=== PATIENT | female | born 1940 | race African-American/Black ===

== ENCOUNTER 2020-11-03 16:23 | Observation (INO) | payer OTHER ==
[2020-11-03 17:07] VITALS: BMI 28.8
[2020-11-03 19:32] LABS: CHLORIDE 106 mmol/L (98-107); SODIUM 141 mmol/L (136-145)
[2020-11-03 19:32] LABS: EOS % 2.6 % (0-4.5); HEMATOCRIT 39.9 % (32.4-45.2); LYMPH % 14.4 % (8-40); MCH 26.1 pg (25.7-33.7); MCHC 32.5 g/dl (32.0-36.0); MEAN CELL VOLUME 80.1 fl (80-96); MEAN PLT VOLUME 9.9 fl (7.5-11.1); MONO % 14.8 % (3.8-10.2); NEUT % 67.2 % (42.8-82.8); PLATELET COUNT 169 10^3/uL (134-434); RBC 4.97 M/mm3 (3.60-5.2); RDW 14.2 % (11.6-15.6); WHITE BLOOD COUNT 5.7 K/mm3 (4.0-10.0)
[2020-11-03 19:36] LABS: ALBUMIN 3.9 g/dl (3.4-5.0); ANION GAP 9 MMOL/L (8-16); BLOOD UREA NITROGEN 19.2 mg/dL (7-18); CO2 26 mmol/L (21-32); GLUCOSE,RANDOM 79 mg/dL (74-106); MAGNESIUM 2.2 mg/dL (1.8-2.4)
[2020-11-03 19:38] LABS: CREATININE 1.3 mg/dL (0.55-1.3); SGOT/AST 27 U/L (15-37); SGPT/ALT 19 U/L (13-61)
[2020-11-03 19:40] LABS: INR 1.03 (0.83-1.09); PROTHROMBIN TIME (PATIENT) 12.7 SEC (9.7-13.0)
[2020-11-03 19:40] LABS: BILIRUBIN,TOTAL 0.7 mg/dL (0.2-1)
[2020-11-03 19:41] LABS: ALK PHOS 141 U/L (45-117); TOT PROT 7.8 g/dl (6.4-8.2)
[2020-11-03 19:44] LABS: N-TERMINAL BNP 283.1 pg/ml (5-450)
[2020-11-03] MEDS ORDERED: CEFTRIAXONE 1 GM in DEXTROSE 5%-WATER - 100 ML IVPB ONE (20:04)
[2020-11-03] MEDS ORDERED: AZITHROMYCIN IVPB 500 MG in DEXTROSE 5%-WATER - 250 ML IVPB ONE (20:04)
[2020-11-03] MEDS ORDERED: CEFTRIAXONE 1 GM/50 ML BAG ONE (20:21)
[2020-11-03] MEDS ORDERED: AZITHROMYCIN IVPB 500 MG/250 ML BAG IVPB ONE (21:17)
[2020-11-04] MEDS ORDERED: ACETAMINOPHEN 325 MG TABLET (FP) PO PRN (02:24)
[2020-11-04 05:57] LABS: PH,URINE 6.5 (5.0-8.0); URINE APPEARANCE CLEAR; URINE BILIRUBIN NEGATIVE (NEGATIVE); URINE COLOR YELLOW; URINE GLUCOSE (UA) NEGATIVE (NEGATIVE); URINE KETONE NEGATIVE (NEGATIVE); URINE LEUK ESTERASE NEGATIVE (NEGATIVE); URINE NITRITE NEGATIVE (NEGATIVE); URINE PROTEIN NEGATIVE (NEGATIVE); URINE UROBILINOGEN 0.2 mg/dL (0.2-1.0)
[2020-11-04 06:51] LABS: BASO % 1.4 % (0-2.0); HEMATOCRIT 39.5 % (32.4-45.2); HEMOGLOBIN 12.8 GM/dL (10.7-15.3); LYMPH % 16.9 % (8-40); MCH 26.1 pg (25.7-33.7); MCHC 32.4 g/dl (32.0-36.0); MEAN CELL VOLUME 80.4 fl (80-96); MEAN PLT VOLUME 8.7 fl (7.5-11.1); MONO % 18.4 % (3.8-10.2); NEUT % 58.3 % (42.8-82.8); PLATELET COUNT 152 10^3/uL (134-434); RBC 4.91 M/mm3 (3.60-5.2); RDW 14.2 % (11.6-15.6); WHITE BLOOD COUNT 4.5 K/mm3 (4.0-10.0)
[2020-11-04 07:16] LABS: ALBUMIN 3.5 g/dl (3.4-5.0); CALCIUM 9.3 mg/dL (8.5-10.1)
[2020-11-04 07:20] LABS: CREATININE 1.2 mg/dL (0.55-1.3); PHOSPHOROUS 3.7 mg/dL (2.5-4.9)
[2020-11-04 07:21] LABS: BILIRUBIN,TOTAL 0.7 mg/dL (0.2-1); TOT PROT 7.2 g/dl (6.4-8.2)
[2020-11-04] MEDS ORDERED: ENOXAPARIN NA (PORCINE) 40 MG/0.4 ML DISP.SYRIN SQ SCH (10:00)
[2020-11-04] MEDS ORDERED: LISINOPRIL 20 MG TABLET PO ONE (10:49)
[2020-11-04] MEDS ORDERED: ENOXAPARIN NA (PORCINE) 40 MG/0.4 ML DISP.SYRIN SQ ONE (11:01)
[2020-11-04] MEDS ORDERED: LISINOPRIL 20 MG TABLET ONE (11:01)
[2020-11-04 17:06] VITALS: BP 147/89; PULSE 89; TEMP 98.2
== END 2020-11-04 17:14 | disposition home or self-care (01) ==
LOC: JER 16:23 → UNDOADMOB 20:29 → INTOOBSV 20:29 → JERBED 20:29
PROVIDERS: ADMIT Internal Medicine; ATTEND Internal Medicine
PROC: 3E03329 Introduction of Other Anti-infective into Peripheral Vein, Percutaneous Approach (ICD-10-PCS; principal; 2020-11-04)
PROC: 3E013GC Introduction of Other Therapeutic Substance into Subcutaneous Tissue, Percutaneous Approach (ICD-10-PCS; 2020-11-04)
DX: R55 Syncope and collapse (principal); I16.0 Hypertensive urgency; I10 Essential (primary) hypertension; Z29.8 Encounter for other specified prophylactic measures; D86.0 Sarcoidosis of lung
CPT/HCPCS: 36415; 70450-TC; 71045-TC-FY; 72100-TC-FY; 72125-TC; 80053; 80061; 81003; 82550; 82962; 83036; 83721; 83735; 83880; 84100; 84443; 84484; 85025; 85610; 87040; 93005; 93010; 93306-TC; 93880-TC; 96365; 96368; 96372; 99285-25; C9803; G0378; U0003; U0005

== ENCOUNTER 2022-10-13 18:31 | Observation (INO) | payer OTHER ==
[2022-10-13 21:10] LABS: BASO % 0.5 % (0-2.0); EOS % 2.7 % (0-4.5); HEMATOCRIT 37.2 % (32.4-45.2); HEMOGLOBIN 12.2 GM/dL (10.7-15.3); LYMPH % 19.8 % (8-40); MCHC 32.9 g/dl (32.0-36.0); MEAN CELL VOLUME 78.8 fl (80-96); MEAN PLT VOLUME 8.7 fl (7.5-11.1); MONO % 14.8 % (3.8-10.2); NEUT % 62.2 % (42.8-82.8); PLATELET COUNT 172 10^3/uL (134-434); RBC 4.71 M/mm3 (3.60-5.2); WHITE BLOOD COUNT 6.4 K/mm3 (4.0-10.0)
[2022-10-13 21:49] LABS: CHLORIDE 108 mmol/L (98-107); SODIUM 135 mmol/L (136-145)
[2022-10-13 21:51] LABS: CALCIUM 9.8 mg/dL (8.5-10.1)
[2022-10-13 21:52] LABS: ALBUMIN 3.6 g/dl (3.4-5.0); BLOOD UREA NITROGEN 20.2 mg/dL (7-18); CO2 24 mmol/L (21-32); GLUCOSE,RANDOM 87 mg/dL (74-106)
[2022-10-13 21:55] LABS: CREATININE 1.2 mg/dL (0.55-1.3)
[2022-10-13 21:56] LABS: TOT PROT 8.8 g/dl (6.4-8.2)
[2022-10-13 21:57] LABS: BILIRUBIN,TOTAL 0.6 mg/dL (0.2-1)
[2022-10-13 21:58] LABS: ALK PHOS 159 U/L (45-117)
[2022-10-13 22:08] LABS: ANION GAP 3 MMOL/L (8-16); POTASSIUM 9.1 mmol/L (3.5-5.1); SGOT/AST 123 U/L (15-37); SGPT/ALT 34 U/L (13-61)
[2022-10-13] MEDS ORDERED: LOSARTAN POTASSIUM 50 MG TABLET PO ONE (22:47)
[2022-10-13 23:01] LABS: CALCIUM 9.6 mg/dL (8.5-10.1)
[2022-10-13 23:02] LABS: ALBUMIN 3.5 g/dl (3.4-5.0); BLOOD UREA NITROGEN 19.3 mg/dL (7-18)
[2022-10-13 23:06] LABS: TOT PROT 7.4 g/dl (6.4-8.2)
[2022-10-13 23:07] LABS: BILIRUBIN,TOTAL 0.7 mg/dL (0.2-1)
[2022-10-13] MEDS ORDERED: LISINOPRIL 10 MG TABLET PO ONE (23:14)
[2022-10-13] MEDS ORDERED: LACTATED RINGERS SOLUTION 1,000 ML/1,000 ML INFUS.BAG IV SCH (23:45)
[2022-10-14] MEDS ORDERED: LISINOPRIL 10 MG TABLET ONE (00:44)
[2022-10-14 01:51] VITALS: BMI 27.4
[2022-10-14 07:31] LABS: HEMATOCRIT 35.6 % (32.4-45.2); HEMOGLOBIN 11.8 GM/dL (10.7-15.3); MCH 26.2 pg (25.7-33.7); MEAN CELL VOLUME 79.3 fl (80-96); MEAN PLT VOLUME 10.4 fl (7.5-11.1); PLATELET COUNT 141 10^3/uL (134-434); RBC 4.49 M/mm3 (3.60-5.2); RDW 14.8 % (11.6-15.6); WHITE BLOOD COUNT 4.8 K/mm3 (4.0-10.0)
[2022-10-14 07:57] LABS: POTASSIUM 3.6 mmol/L (3.5-5.1)
[2022-10-14 08:03] LABS: ALBUMIN 3.4 g/dl (3.4-5.0); CALCIUM 9.5 mg/dL (8.5-10.1)
[2022-10-14 08:04] LABS: BLOOD UREA NITROGEN 16.4 mg/dL (7-18); MAGNESIUM 1.9 mg/dL (1.8-2.4)
[2022-10-14 08:05] LABS: PHOSPHOROUS 3.3 mg/dL (2.5-4.9)
[2022-10-14 08:06] LABS: TOT PROT 7.3 g/dl (6.4-8.2)
[2022-10-14] MEDS: ENOXAPARIN NA (PORCINE) 40 MG/0.4 ML DISP.SYRIN SQ SCH (09:57)
[2022-10-14] MEDS ORDERED: LISINOPRIL 5 MG TABLET PO SCH (10:00)
[2022-10-14] MEDS ORDERED: amLODIPine BESYLATE 5 MG TABLET (FP) PO SCH (11:53)
[2022-10-14 12:01] LABS: EPI CELLS 4 /uL (0-25.1); HYALINE CASTS 0 /uL (0-3.1); PH,URINE 6.5 (5.0-8.0); URINE APPEARANCE CLEAR; URINE BACTERIA 6 /uL (0-1359); URINE BILIRUBIN NEGATIVE (NEGATIVE); URINE COLOR YELLOW; URINE GLUCOSE (UA) NEGATIVE (NEGATIVE); URINE KETONE NEGATIVE (NEGATIVE); URINE LEUK ESTERASE 1+ (NEGATIVE); URINE NITRITE NEGATIVE (NEGATIVE); URINE PROTEIN NEGATIVE (NEGATIVE); URINE RBC 10 /uL (0-23.9); URINE UROBILINOGEN 0.2 mg/dL (0.2-1.0); URINE WBC 46 /uL (0-25.8)
[2022-10-14] MEDS: DEXTROSE 5%-0.45% SALINE 1,000 ML IV SCH (15:49)
[2022-10-14] MEDS ORDERED: amLODIPine BESYLATE 5 MG TABLET (FP) PO ONE (17:18)
[2022-10-14] MEDS ORDERED: METOPROLOL TARTRATE 5 MG/5 ML VIAL IVPUSH ONE (17:20)
[2022-10-14] MEDS ORDERED: METOPROLOL TARTRATE 5 MG/5 ML VIAL IVPUSH PRN (21:22)
[2022-10-14] MEDS ORDERED: amLODIPine BESYLATE 2.5 MG TABLET (FP) PO SCH (22:00)
[2022-10-14] MEDS: LISINOPRIL 10 MG TABLET PO SCH (22:11)
[2022-10-15 09:06] VITALS: RESP 20; TEMP 98.7
[2022-10-15] MEDS: ENOXAPARIN NA (PORCINE) 40 MG/0.4 ML DISP.SYRIN SQ SCH (09:31)
[2022-10-15] MEDS: LISINOPRIL 10 MG TABLET PO SCH (09:32)
[2022-10-15 14:11] VITALS: BP 137/71; PULSE 84
[2022-10-15] MEDS: DEXTROSE 5%-0.45% SALINE 1,000 ML IV SCH ×2 (15:50→15:55)
== END 2022-10-15 16:05 | disposition home or self-care (01) ==
LOC: JER 18:31 → JERBED 22:26 → J4W 10-14 01:18
PROVIDERS: ADMIT Internal Medicine; ATTEND Internal Medicine
PROC: 3E0337Z Introduction of Electrolytic and Water Balance Substance into Peripheral Vein, Percutaneous Approach (ICD-10-PCS; principal; 2022-10-13)
PROC: 3E013GC Introduction of Other Therapeutic Substance into Subcutaneous Tissue, Percutaneous Approach (ICD-10-PCS; 2022-10-13)
DX: R55 Syncope and collapse (principal); I10 Essential (primary) hypertension; K21.9 Gastro-esophageal reflux disease without esophagitis; J84.10 Pulmonary fibrosis, unspecified; E16.2 Hypoglycemia, unspecified
CPT/HCPCS: 0241U-QW; 36415; 70450-TC; 71046-TC-FY; 72125-TC; 80053; 80061; 81003; 82024; 82533; 82550; 82947; 82962; 83735; 84100; 84443; 84484; 85025; 85027; 87086; 93005; 93010; 93880-TC; 96372; 99285-25; G0378

== ENCOUNTER 2024-02-09 16:57 | Inpatient (IN) | payer OTHER ==
[2024-02-09] MEDS ORDERED: ACETAMINOPHEN INJECTION 100 ML ONE (18:31)
[2024-02-09] MEDS ORDERED: PANTOPRAZOLE SODIUM 40 MG VIAL ONE (18:32)
[2024-02-09 18:34] LABS: BASO % 0.6 % (0-2.0); HEMATOCRIT 40.2 % (32.4-45.2); HEMOGLOBIN 12.9 GM/dL (10.7-15.3); LYMPH % 8.4 % (8-40); MCH 25.5 pg (25.7-33.7); MCHC 32.2 g/dl (32.0-36.0); MEAN CELL VOLUME 79.4 fl (80-96); MEAN PLT VOLUME 9.1 fl (7.5-11.1); PLATELET COUNT 172 10^3/uL (134-434); RBC 5.06 M/mm3 (3.60-5.2); RDW 14.9 % (11.6-15.6); WHITE BLOOD COUNT 14.1 K/mm3 (4.0-10.0)
[2024-02-09] MEDS: LACTATED RINGERS SOLUTION 1,000 ML/1,000 ML INFUS.BAG IV SCH (18:40)
[2024-02-09] MEDS: PANTOPRAZOLE SODIUM 40 MG VIAL IVPUSH ONE (18:40)
[2024-02-09] MEDS: ACETAMINOPHEN 1000 MG/100 ML BAG IVPB ONE (18:40)
[2024-02-09 18:49] LABS: CHLORIDE 104 mmol/L (98-107); SODIUM 131 mmol/L (136-145)
[2024-02-09 18:51] LABS: CALCIUM 9.8 mg/dL (8.5-10.1)
[2024-02-09 18:52] LABS: ALBUMIN 3.4 g/dl (3.4-5.0); BLOOD UREA NITROGEN 17.2 mg/dL (7-18); CO2 24 mmol/L (21-32); GLUCOSE,RANDOM 101 mg/dL (74-106)
[2024-02-09 18:55] LABS: CREATININE 1.6 mg/dL (0.55-1.3); PHOSPHOROUS 4.3 mg/dL (2.5-4.9)
[2024-02-09 18:56] LABS: BILIRUBIN,TOTAL 1.2 mg/dL (0.2-1); TOT PROT 8.7 g/dl (6.4-8.2)
[2024-02-09 18:58] LABS: ALK PHOS 223 U/L (45-117)
[2024-02-09 19:04] LABS: LACTIC ACID 2.6 mmol/L (0.4-2.0)
[2024-02-09 19:05] LABS: ANION GAP 3 mmol/L (4-13); POTASSIUM > 10.0 mmol/L (3.5-5.1); SGOT/AST 141 U/L (15-37); SGPT/ALT 36 U/L (13-61)
[2024-02-09 19:45] LABS: HIV INTERPRETATION NEGATIVE (NEGATIVE)
[2024-02-09] MEDS: SODIUM CHLORIDE 0.9% 500 ML INFUS.BAG IV ONE (19:52)
[2024-02-09 20:31] LABS: POTASSIUM 5.8 mmol/L (3.5-5.1)
[2024-02-09 20:33] LABS: CALCIUM 9.3 mg/dL (8.5-10.1)
[2024-02-09 20:37] LABS: CREATININE 1.4 mg/dL (0.55-1.3)
[2024-02-09] MEDS: KETOROLAC TROMETHAMINE 15 MG/ML VIAL IVPUSH ONE (22:27)
[2024-02-09] MEDS ORDERED: KETOROLAC TROMETHAMINE 15 MG/ML VIAL ONE (22:30)
[2024-02-09] MEDS: MAG HYDROX/AL HYDROX/SIMETH 30 ML UNIT-DOSE CUP PO ONE (23:22)
[2024-02-09] MEDS: FAMOTIDINE 20 MG/50 ML IVPB 20 MG/50 ML MG IVPB ONE (23:22)
[2024-02-09] MEDS ORDERED: FAMOTIDINE 20 MG/50 ML IVPB 20 MG/50 ML MG IVPB ONE (23:23)
[2024-02-09] MEDS ORDERED: MAG HYDROX/AL HYDROX/SIMETH 30 ML UNIT-DOSE CUP ONE (23:23)
[2024-02-09 23:44] LABS: EPI CELLS 7 /uL (0-25.1); HYALINE CASTS 0 /uL (0-3.1); URINE APPEARANCE CLEAR; URINE BACTERIA 16 /uL (0-1359); URINE BILIRUBIN NEGATIVE (NEGATIVE); URINE COLOR YELLOW; URINE GLUCOSE (UA) NEGATIVE (NEGATIVE); URINE KETONE NEGATIVE (NEGATIVE); URINE LEUK ESTERASE 2+ (NEGATIVE); URINE NITRITE NEGATIVE (NEGATIVE); URINE PROTEIN NEGATIVE (NEGATIVE); URINE RBC 13 /uL (0-23.9); URINE WBC 108 /uL (0-25.8)
[2024-02-10 00:18] LABS: POTASSIUM 3.6 mmol/L (3.5-5.1)
[2024-02-10 01:12] LABS: ALBUMIN 3.3 g/dl (3.4-5.0)
[2024-02-10 01:15] LABS: BILIRUBIN,DIRECT 0.5 mg/dL (0.0-0.2)
[2024-02-10 01:17] LABS: BILIRUBIN,TOTAL 1.3 mg/dL (0.2-1); TOT PROT 7.1 g/dl (6.4-8.2)
[2024-02-10] MEDS: SODIUM CHLORIDE 1,000 ML IV SCH (01:31)
[2024-02-10] MEDS: CEFTRIAXONE 1 GM in DEXTROSE 5%-WATER - 100 ML IVPB ONE (01:32)
[2024-02-10] MEDS: AZITHROMYCIN 500 MG TABLET PO ONE (01:32)
[2024-02-10 01:36] LABS: LACTIC ACID 2.7 mmol/L (0.4-2.0)
[2024-02-10] MEDS ORDERED: CEFTRIAXONE 1 GM/50 ML BAG ONE ×2 (01:58→11:41)
[2024-02-10] MEDS ORDERED: AZITHROMYCIN 500 MG TABLET ONE (01:58)
[2024-02-10] MEDS ORDERED: PANTOPRAZOLE SODIUM 40 MG VIAL IVPUSH ONE (04:56)
[2024-02-10] MEDS ORDERED: MAG HYDROX/AL HYDROX/SIMETH 30 ML UNIT-DOSE CUP ONE ×3 (07:25→17:50)
[2024-02-10] MEDS: MAG HYDROX/AL HYDROX/SIMETH 30 ML UNIT-DOSE CUP PO SCH (07:38)
[2024-02-10] MEDS ORDERED: PANTOPRAZOLE SODIUM 40 MG/100 ML BAG IVPB ONE (08:57)
[2024-02-10] MEDS ORDERED: ENOXAPARIN NA (PORCINE) 40 MG/0.4 ML DISP.SYRIN SQ ONE (08:57)
[2024-02-10] MEDS ORDERED: PANTOPRAZOLE SODIUM 40 MG VIAL ONE (08:59)
[2024-02-10 09:06] LABS: ALBUMIN 3.2 g/dl (3.4-5.0)
[2024-02-10 09:07] LABS: ALBUMIN 3.3 g/dl (3.4-5.0)
[2024-02-10 09:08] LABS: BILIRUBIN,DIRECT 0.1 mg/dL (0.0-0.2)
[2024-02-10 09:09] LABS: BILIRUBIN,DIRECT 0.4 mg/dL (0.0-0.2)
[2024-02-10 09:10] LABS: TOT PROT 7.2 g/dl (6.4-8.2)
[2024-02-10 09:11] LABS: BILIRUBIN,TOTAL 1.3 mg/dL (0.2-1)
[2024-02-10 09:11] LABS: BILIRUBIN,TOTAL 1.2 mg/dL (0.2-1)
[2024-02-10] MEDS: PANTOPRAZOLE SODIUM 40 MG VIAL IVPUSH SCH (09:15)
[2024-02-10] MEDS: MEMANTINE HCL 10 MG TABLET (FP) PO SCH (09:15)
[2024-02-10] MEDS: ENOXAPARIN NA (PORCINE) 40 MG/0.4 ML DISP.SYRIN SQ SCH (09:15)
[2024-02-10] MEDS ORDERED: cefTRIAXone SODIUM 1 GM VIAL ONE (11:37)
[2024-02-10] MEDS: CEFTRIAXONE 1 GM in DEXTROSE 5%-WATER - 50 ML IVPB SCH (12:01)
[2024-02-10 12:02] LABS: BASO % 0.6 % (0-2.0); HEMATOCRIT 37.8 % (32.4-45.2); HEMOGLOBIN 11.9 GM/dL (10.7-15.3); LYMPH % 8.4 % (8-40); MCH 25.1 pg (25.7-33.7); MCHC 31.5 g/dl (32.0-36.0); MEAN CELL VOLUME 79.7 fl (80-96); MEAN PLT VOLUME 12.1 fl (7.5-11.1); MONO % 12.4 % (3.8-10.2); NEUT % 75.6 % (42.8-82.8); PLATELET COUNT 139 10^3/uL (134-434); RBC 4.74 M/mm3 (3.60-5.2); RDW 14.8 % (11.6-15.6); WHITE BLOOD COUNT 11.5 K/mm3 (4.0-10.0)
[2024-02-10 12:09] LABS: POTASSIUM 3.6 mmol/L (3.5-5.1)
[2024-02-10 12:10] LABS: CALCIUM 9.6 mg/dL (8.5-10.1)
[2024-02-10 12:11] LABS: BLOOD UREA NITROGEN 12.1 mg/dL (7-18)
[2024-02-10 12:14] LABS: CREATININE 1.3 mg/dL (0.55-1.3)
[2024-02-10] MEDS ORDERED: ATORVASTATIN CA 10 MG TABLET (FP) ONE (21:38)
[2024-02-10] MEDS ORDERED: DONEPEZIL HCL 5 MG TABLET (FP) ONE (21:38)
[2024-02-10] MEDS ORDERED: MIRTAZAPINE 15 MG TABLET (FP) ONE (21:38)
[2024-02-10] MEDS: MIRTAZAPINE 15 MG TABLET (FP) PO SCH (21:44)
[2024-02-10] MEDS: ATORVASTATIN CA 10 MG TABLET (FP) PO SCH (21:44)
[2024-02-10] MEDS: DONEPEZIL HCL 10 MG TABLET (FP) PO SCH (21:44)
[2024-02-11] MEDS ORDERED: MAG HYDROX/AL HYDROX/SIMETH 30 ML UNIT-DOSE CUP ONE ×2 (00:28→06:39)
[2024-02-11] MEDS: ACETAMINOPHEN 1000 MG/100 ML BAG IVPB ONE (02:46)
[2024-02-11 08:55] LABS: HEMATOCRIT 37.2 % (32.4-45.2); HEMOGLOBIN 11.7 GM/dL (10.7-15.3); MCH 25.3 pg (25.7-33.7); MCHC 31.4 g/dl (32.0-36.0); MEAN CELL VOLUME 80.4 fl (80-96); MEAN PLT VOLUME 10.3 fl (7.5-11.1); PLATELET COUNT 153 10^3/uL (134-434); RBC 4.63 M/mm3 (3.60-5.2); RDW 14.6 % (11.6-15.6); WHITE BLOOD COUNT 12.8 K/mm3 (4.0-10.0)
[2024-02-11 09:11] LABS: POTASSIUM 3.4 mmol/L (3.5-5.1)
[2024-02-11 09:17] LABS: CALCIUM 9.8 mg/dL (8.5-10.1)
[2024-02-11 09:18] LABS: ALBUMIN 3.3 g/dl (3.4-5.0); BLOOD UREA NITROGEN 9.6 mg/dL (7-18); MAGNESIUM 1.8 mg/dL (1.8-2.4)
[2024-02-11 09:20] LABS: BILIRUBIN,TOTAL 1.2 mg/dL (0.2-1); TOT PROT 6.9 g/dl (6.4-8.2)
[2024-02-11 09:21] LABS: CREATININE 1.2 mg/dL (0.55-1.3)
[2024-02-11] MEDS ORDERED: CEFTRIAXONE 1 GM/50 ML BAG ONE (10:34)
[2024-02-11] MEDS ORDERED: PANTOPRAZOLE SODIUM 40 MG VIAL ONE (10:34)
[2024-02-11] MEDS ORDERED: POTASSIUM CHLORIDE ORAL LIQUID 20 MEQ/15 ML ONE (11:05)
[2024-02-11] MEDS ORDERED: ENOXAPARIN NA (PORCINE) 40 MG/0.4 ML DISP.SYRIN SQ ONE ×2 (11:29→15:28)
[2024-02-11] MEDS ORDERED: PIPERACILLIN/TAZOB 3.375 GM 3.375 GM/50 ML BAG IVPB ONE (11:29)
[2024-02-11] MEDS: POTASSIUM CHLORIDE ORAL LIQUID 20 MEQ/15 ML PO ONE (12:18)
[2024-02-11] MEDS: D5-1/2NS+10 MEQ KCL - 10 MEQ/1,000 ML INFUS.BAG IV SCH (17:55)
[2024-02-11] MEDS: PIPERACILLIN/TAZOB 3.375 GM 3.375 GM in DEXTROSE 5%-WATER - 50 ML IVPB SCH (17:55)
[2024-02-12] MEDS: LISINOPRIL 10 MG TABLET PO SCH (00:54)
[2024-02-12 07:58] LABS: INR 1.15 (0.83-1.09); PROTHROMBIN TIME (PATIENT) 13.2 SEC (9.7-13.0)
[2024-02-12 08:00] LABS: ACTIVATED PTT 33.5 SECONDS (25.2-36.5)
[2024-02-12] MEDS: amLODIPine BESYLATE 5 MG TABLET (FP) PO SCH (09:20)
[2024-02-12 14:58] VITALS: BMI 23.9
[2024-02-12] MEDS: ACETAMINOPHEN 1000 MG/100 ML BAG IVPB ONE (22:02)
[2024-02-13] MEDS: ceFAZolin SODIUM 1 GM VIAL IVPB ONE
[2024-02-13] MEDS ORDERED: INDOCYANINE GREEN 25 MG/10 ML VIAL IVPUSH ONE (10:03)
[2024-02-13] MEDS ORDERED: BUPIVACAINE HCL/PF 0.25% (2.5MG/ML) 10 ML VIAL ONE (10:04)
[2024-02-13] MEDS ORDERED: HEPARIN NA (PORCINE) 5,000 UNITS/ML 1ML VIAL ONE (10:04)
[2024-02-13] MEDS ORDERED: ROCURONIUM BROMIDE 50 MG/5 ML SYRINGE ONE (10:50)
[2024-02-13] MEDS ORDERED: PROPOFOL 20 ML ONE (10:51)
[2024-02-13] MEDS ORDERED: oxyCODONE HCL 5 MG TABLET PO PRN (11:25)
[2024-02-13] MEDS ORDERED: ONDANSETRON 4 MG/2 ML VIAL IVPUSH PRN ×2 (11:25→14:35)
[2024-02-13] MEDS ORDERED: ONDANSETRON 4 MG/2 ML VIAL ONE (11:54)
[2024-02-13] MEDS ORDERED: DEXAMETHASONE SOD PHOSPHATE 4 MG/1 ML VIAL ONE (11:54)
[2024-02-13] MEDS: BUPIVACAINE HCL/PF 0.25% (2.5MG/ML) 10 ML VIAL IJ ONE ×2 (12:10)
[2024-02-13] MEDS ORDERED: SUGAMMADEX SODIUM 200 MG/2 ML VIAL ONE (14:03)
[2024-02-13] MEDS ORDERED: LACTATED RINGERS SOLUTION 1,000 ML IV SCH (14:35)
[2024-02-13] MEDS: ACETAMINOPHEN 1000 MG/100 ML BAG IVPB SCH (14:45)
[2024-02-13] MEDS ORDERED: CEFOXITIN SODIUM 2 GM IVPB ONE (15:58)
[2024-02-13] MEDS: D5-1/2NS+10 MEQ KCL - 10 MEQ/1,000 ML INFUS.BAG IV SCH (16:20)
[2024-02-13] MEDS: PIPERACILLIN/TAZOB 3.375 GM 3.375 GM in DEXTROSE 5%-WATER - 50 ML IVPB SCH (18:13)
[2024-02-13] MEDS: DONEPEZIL HCL 10 MG TABLET (FP) PO SCH (21:30)
[2024-02-13] MEDS: ATORVASTATIN CA 10 MG TABLET (FP) PO SCH (21:30)
[2024-02-13] MEDS: LISINOPRIL 10 MG TABLET PO SCH (21:31)
[2024-02-13] MEDS: MIRTAZAPINE 15 MG TABLET (FP) PO SCH (21:31)
[2024-02-14 08:26] LABS: BASO % 0.1 % (0-2.0); EOS % 0.1 % (0-4.5); HEMATOCRIT 31.8 % (32.4-45.2); HEMOGLOBIN 10.3 GM/dL (10.7-15.3); LYMPH % 4.4 % (8-40); MCH 25.8 pg (25.7-33.7); MCHC 32.4 g/dl (32.0-36.0); MEAN CELL VOLUME 79.8 fl (80-96); MEAN PLT VOLUME 9.9 fl (7.5-11.1); MONO % 12.5 % (3.8-10.2); NEUT % 82.9 % (42.8-82.8); PLATELET COUNT 142 10^3/uL (134-434); RBC 3.98 M/mm3 (3.60-5.2); RDW 15.2 % (11.6-15.6); WHITE BLOOD COUNT 18.5 K/mm3 (4.0-10.0)
[2024-02-14 08:30] LABS: POTASSIUM 4.1 mmol/L (3.5-5.1)
[2024-02-14 08:35] LABS: ALBUMIN 2.7 g/dl (3.4-5.0); CALCIUM 9.2 mg/dL (8.5-10.1)
[2024-02-14 08:36] LABS: BLOOD UREA NITROGEN 11.2 mg/dL (7-18)
[2024-02-14 08:39] LABS: CREATININE 1.5 mg/dL (0.55-1.3)
[2024-02-14 08:40] LABS: BILIRUBIN,TOTAL 1.2 mg/dL (0.2-1)
[2024-02-14] MEDS: LACTATED RINGERS SOLUTION 1,000 ML IV SCH (10:16)
[2024-02-14] MEDS: amLODIPine BESYLATE 5 MG TABLET (FP) PO SCH (10:18)
[2024-02-14] MEDS: PANTOPRAZOLE SODIUM 40 MG VIAL IVPUSH SCH (10:19)
[2024-02-14] MEDS: MEMANTINE HCL 10 MG TABLET (FP) PO SCH (10:19)
[2024-02-14] MEDS ORDERED: MAGNESIUM SULFATE IN WATER 2 GM/50 ML IVPB IVPB ONE (14:25)
[2024-02-14] MEDS: MAGNESIUM SULFATE IN WATER 2 GM/50 ML IVPB IVPB ONE (17:04)
[2024-02-14] MEDS: oxyCODONE HCL 5 MG TABLET PO PRN (18:36)
[2024-02-14] MEDS: SENNOSIDES/DOCUSATE COMBO (SENNA PLUS) TABLET (UD) PO SCH (21:25)
[2024-02-15 07:58] LABS: HEMATOCRIT 27.4 % (32.4-45.2); HEMOGLOBIN 8.9 GM/dL (10.7-15.3); MCH 26.2 pg (25.7-33.7); MCHC 32.6 g/dl (32.0-36.0); MEAN CELL VOLUME 80.3 fl (80-96); MEAN PLT VOLUME 9.9 fl (7.5-11.1); PLATELET COUNT 122 10^3/uL (134-434); RBC 3.41 M/mm3 (3.60-5.2); RDW 15.2 % (11.6-15.6); WHITE BLOOD COUNT 14.3 K/mm3 (4.0-10.0)
[2024-02-15 08:13] LABS: CALCIUM 8.6 mg/dL (8.5-10.1)
[2024-02-15 08:14] LABS: ALBUMIN 2.4 g/dl (3.4-5.0); BLOOD UREA NITROGEN 12.5 mg/dL (7-18)
[2024-02-15 08:18] LABS: BILIRUBIN,DIRECT 0.4 mg/dL (0.0-0.2); CREATININE 1.6 mg/dL (0.55-1.3)
[2024-02-15 08:19] LABS: BILIRUBIN,TOTAL 0.9 mg/dL (0.2-1); TOT PROT 5.4 g/dl (6.4-8.2)
[2024-02-15 09:19] LABS: ANISOCYTOSIS 3+; MACROCYTOSIS 0
[2024-02-15 14:44] LABS: BASO % 0.4 % (0-2.0); EOS % 3.4 % (0-4.5); HEMATOCRIT 29.4 % (32.4-45.2); HEMOGLOBIN 9.3 GM/dL (10.7-15.3); LYMPH % 6.7 % (8-40); MCH 25.5 pg (25.7-33.7); MCHC 31.6 g/dl (32.0-36.0); MEAN CELL VOLUME 80.7 fl (80-96); MEAN PLT VOLUME 8.7 fl (7.5-11.1); MONO % 13.8 % (3.8-10.2); NEUT % 75.7 % (42.8-82.8); PLATELET COUNT 132 10^3/uL (134-434); RBC 3.65 M/mm3 (3.60-5.2); RDW 15.5 % (11.6-15.6); WHITE BLOOD COUNT 14.9 K/mm3 (4.0-10.0)
[2024-02-15] MEDS: LACTATED RINGERS SOLUTION 1,000 ML/1,000 ML INFUS.BAG IV SCH (22:00)
[2024-02-15 22:05] LABS: BASO % 0.5 % (0-2.0); EOS % 4.1 % (0-4.5); HEMATOCRIT 31.5 % (32.4-45.2); HEMOGLOBIN 9.7 GM/dL (10.7-15.3); LYMPH % 7.2 % (8-40); MCH 25.4 pg (25.7-33.7); MCHC 30.9 g/dl (32.0-36.0); MEAN CELL VOLUME 82.2 fl (80-96); MEAN PLT VOLUME 9.2 fl (7.5-11.1); MONO % 13.6 % (3.8-10.2); NEUT % 74.6 % (42.8-82.8); PLATELET COUNT 141 10^3/uL (134-434); RBC 3.83 M/mm3 (3.60-5.2); RDW 15.5 % (11.6-15.6); WHITE BLOOD COUNT 15.9 K/mm3 (4.0-10.0)
[2024-02-15 22:19] LABS: POTASSIUM 4.3 mmol/L (3.5-5.1)
[2024-02-15 22:22] LABS: BLOOD UREA NITROGEN 13.2 mg/dL (7-18)
[2024-02-15 22:24] LABS: CREATININE 1.4 mg/dL (0.55-1.3)
[2024-02-16] MEDS: FUROSEMIDE 40 MG/4 ML INJECTABLE VIAL IVPUSH ONE (09:21)
[2024-02-16] MEDS: LACTATED RINGERS SOLUTION 1,000 ML/1,000 ML INFUS.BAG IV SCH ×2 (09:29→11:10)
[2024-02-16] MEDS: ENOXAPARIN NA (PORCINE) 40 MG/0.4 ML DISP.SYRIN SQ SCH (09:30)
[2024-02-16 09:47] LABS: BASO % 0.5 % (0-2.0); EOS % 3.3 % (0-4.5); HEMATOCRIT 33.5 % (32.4-45.2); HEMOGLOBIN 10.8 GM/dL (10.7-15.3); LYMPH % 6.9 % (8-40); MCH 26.4 pg (25.7-33.7); MCHC 32.3 g/dl (32.0-36.0); MEAN CELL VOLUME 81.9 fl (80-96); MEAN PLT VOLUME 9.4 fl (7.5-11.1); MONO % 13.9 % (3.8-10.2); NEUT % 75.4 % (42.8-82.8); PLATELET COUNT 137 10^3/uL (134-434); RBC 4.09 M/mm3 (3.60-5.2); RDW 15.8 % (11.6-15.6); WHITE BLOOD COUNT 17.5 K/mm3 (4.0-10.0)
[2024-02-16 09:51] LABS: INR 1.03 (0.83-1.09); PROTHROMBIN TIME (PATIENT) 11.6 SEC (9.7-13.0)
[2024-02-16 09:53] LABS: ACTIVATED PTT 31.9 SECONDS (25.2-36.5)
[2024-02-16 12:26] LABS: ALBUMIN 2.4 g/dl (3.4-5.0); BLOOD UREA NITROGEN 11.5 mg/dL (7-18)
[2024-02-16 12:29] LABS: CREATININE 1.2 mg/dL (0.55-1.3); TOT PROT 5.7 g/dl (6.4-8.2)
[2024-02-16] MEDS: TRANEXAMIC ACID 1000 MG/10 ML VIAL IVPB ONE (13:31)
[2024-02-16 15:24] LABS: HEMATOCRIT 38.4 % (32.4-45.2); HEMOGLOBIN 12.4 GM/dL (10.7-15.3); MCH 26.4 pg (25.7-33.7); MCHC 32.3 g/dl (32.0-36.0); MEAN CELL VOLUME 81.9 fl (80-96); MEAN PLT VOLUME 8.7 fl (7.5-11.1); PLATELET COUNT 148 10^3/uL (134-434); RBC 4.68 M/mm3 (3.60-5.2); RDW 16.2 % (11.6-15.6)
[2024-02-16] MEDS: ACETAMINOPHEN 325 MG TABLET (FP) PO PRN (16:52)
[2024-02-17 07:41] LABS: POTASSIUM 3.9 mmol/L (3.5-5.1)
[2024-02-17 07:51] LABS: ALBUMIN 2.5 g/dl (3.4-5.0); BILIRUBIN,TOTAL 1.7 mg/dL (0.2-1); BLOOD UREA NITROGEN 15.3 mg/dL (7-18); TOT PROT 6.2 g/dl (6.4-8.2)
[2024-02-17 07:53] LABS: CREATININE 1.4 mg/dL (0.55-1.3)
[2024-02-17 07:55] LABS: CALCIUM 9.4 mg/dL (8.5-10.1)
[2024-02-17 08:08] LABS: BASO % 0.5 % (0-2.0); EOS % 3.5 % (0-4.5); HEMATOCRIT 37.1 % (32.4-45.2); HEMOGLOBIN 11.9 GM/dL (10.7-15.3); LYMPH % 5.4 % (8-40); MCH 26.6 pg (25.7-33.7); MCHC 32.1 g/dl (32.0-36.0); MEAN CELL VOLUME 82.8 fl (80-96); MEAN PLT VOLUME 10.3 fl (7.5-11.1); NEUT % 79.6 % (42.8-82.8); PLATELET COUNT 141 10^3/uL (134-434); RBC 4.48 M/mm3 (3.60-5.2); RDW 15.9 % (11.6-15.6); WHITE BLOOD COUNT 16.7 K/mm3 (4.0-10.0)
[2024-02-17] MEDS: FUROSEMIDE 40 MG/4 ML INJECTABLE VIAL IVPUSH ONE (12:54)
[2024-02-17] MEDS: LACTATED RINGERS SOLUTION 1,000 ML/1,000 ML INFUS.BAG IV SCH (18:11)
[2024-02-18 07:35] LABS: BASO % 0.5 % (0-2.0); EOS % 3.3 % (0-4.5); HEMOGLOBIN 11.2 GM/dL (10.7-15.3); LYMPH % 6.5 % (8-40); MCH 26.3 pg (25.7-33.7); MEAN CELL VOLUME 82.1 fl (80-96); MONO % 14.2 % (3.8-10.2); NEUT % 75.5 % (42.8-82.8); PLATELET COUNT 159 10^3/uL (134-434); RBC 4.26 M/mm3 (3.60-5.2); RDW 16.2 % (11.6-15.6); WHITE BLOOD COUNT 15.7 K/mm3 (4.0-10.0)
[2024-02-18 07:55] LABS: POTASSIUM 3.7 mmol/L (3.5-5.1)
[2024-02-18 08:04] LABS: CALCIUM 9.2 mg/dL (8.5-10.1)
[2024-02-18 08:05] LABS: ALBUMIN 2.3 g/dl (3.4-5.0); BLOOD UREA NITROGEN 17.2 mg/dL (7-18)
[2024-02-18 08:07] LABS: BILIRUBIN,TOTAL 1.6 mg/dL (0.2-1); TOT PROT 5.9 g/dl (6.4-8.2)
[2024-02-18 08:08] LABS: CREATININE 1.5 mg/dL (0.55-1.3)
[2024-02-18] MEDS ORDERED: oxyCODONE HCL 5 MG TABLET PO PRN (10:32)
[2024-02-18] MEDS: PIPERACILLIN/TAZOB 3.375 GM 3.375 GM in DEXTROSE 5%-WATER - 50 ML IVPB SCH (17:32)
[2024-02-18] MEDS: methylPREDNISolone NA SUCC 40 MG/1 ML VIAL IVPUSH ONE (20:33)
[2024-02-18] MEDS: ACETAMINOPHEN 1000 MG/100 ML BAG IVPB ONE (20:33)
[2024-02-18] MEDS: MIRTAZAPINE 15 MG TABLET (FP) PO SCH (22:19)
[2024-02-18] MEDS: LISINOPRIL 10 MG TABLET PO SCH (22:19)
[2024-02-18] MEDS: DONEPEZIL HCL 10 MG TABLET (FP) PO SCH (22:19)
[2024-02-18] MEDS: ATORVASTATIN CA 10 MG TABLET (FP) PO SCH (22:19)
[2024-02-18 23:17] LABS: HEMOGLOBIN 10.8 GM/dL (10.7-15.3); MCH 26.4 pg (25.7-33.7); MCHC 32.7 g/dl (32.0-36.0); MEAN CELL VOLUME 80.8 fl (80-96); MEAN PLT VOLUME 8.4 fl (7.5-11.1); PLATELET COUNT 166 10^3/uL (134-434); RBC 4.09 M/mm3 (3.60-5.2); RDW 15.9 % (11.6-15.6); WHITE BLOOD COUNT 16.8 K/mm3 (4.0-10.0)
[2024-02-18 23:25] LABS: INR 1.19 (0.83-1.09); PROTHROMBIN TIME (PATIENT) 13.4 SEC (9.7-13.0)
[2024-02-19 07:30] LABS: HEMATOCRIT 35.6 % (32.4-45.2); HEMOGLOBIN 11.4 GM/dL (10.7-15.3); MCH 26.4 pg (25.7-33.7); MEAN CELL VOLUME 82.5 fl (80-96); MEAN PLT VOLUME 9.7 fl (7.5-11.1); PLATELET COUNT 188 10^3/uL (134-434); RBC 4.32 M/mm3 (3.60-5.2); RDW 16.9 % (11.6-15.6); WHITE BLOOD COUNT 16.1 K/mm3 (4.0-10.0)
[2024-02-19 07:38] LABS: POTASSIUM 4.1 mmol/L (3.5-5.1)
[2024-02-19 07:41] LABS: ALBUMIN 2.5 g/dl (3.4-5.0); BLOOD UREA NITROGEN 19.1 mg/dL (7-18); CALCIUM 9.6 mg/dL (8.5-10.1)
[2024-02-19 07:44] LABS: CREATININE 1.2 mg/dL (0.55-1.3)
[2024-02-19 07:46] LABS: BILIRUBIN,TOTAL 1.5 mg/dL (0.2-1); TOT PROT 6.4 g/dl (6.4-8.2)
[2024-02-19] MEDS ORDERED: LEVALBUTEROL HCL 0.31 MG/3 ML VIAL.NEB IH SCH (08:00)
[2024-02-19] MEDS: LEVALBUTEROL HCL 0.31 MG/3 ML VIAL.NEB IH SCH (08:00)
[2024-02-19 09:50] LABS: ANISOCYTOSIS 3+; MACROCYTOSIS 0
[2024-02-19] MEDS ORDERED: ENOXAPARIN NA (PORCINE) 40 MG/0.4 ML DISP.SYRIN SQ SCH (10:00)
[2024-02-19] MEDS: MEMANTINE HCL 10 MG TABLET (FP) PO SCH (10:22)
[2024-02-19] MEDS: amLODIPine BESYLATE 5 MG TABLET (FP) PO SCH (10:22)
[2024-02-19] MEDS: PANTOPRAZOLE SODIUM 40 MG VIAL IVPUSH SCH (10:22)
[2024-02-19] MEDS ORDERED: LORazepam 0.5 MG TABLET PO PRN (16:21)
[2024-02-19 16:24] LABS: N-TERMINAL BNP 420.8 pg/ml (5-450)
[2024-02-20] MEDS: ACETAMINOPHEN 325 MG TABLET (FP) PO PRN (07:49)
[2024-02-20 08:56] LABS: BASO % 0.2 % (0-2.0); EOS % 1.2 % (0-4.5); HEMATOCRIT 34.3 % (32.4-45.2); HEMOGLOBIN 10.8 GM/dL (10.7-15.3); MCHC 31.5 g/dl (32.0-36.0); MEAN CELL VOLUME 82.8 fl (80-96); MEAN PLT VOLUME 10.2 fl (7.5-11.1); MONO % 15.1 % (3.8-10.2); NEUT % 78.5 % (42.8-82.8); PLATELET COUNT 203 10^3/uL (134-434); RBC 4.15 M/mm3 (3.60-5.2); RDW 16.2 % (11.6-15.6); WHITE BLOOD COUNT 19.3 K/mm3 (4.0-10.0)
[2024-02-20 09:15] LABS: POTASSIUM 3.5 mmol/L (3.5-5.1)
[2024-02-20 09:17] LABS: ALBUMIN 2.5 g/dl (3.4-5.0); BLOOD UREA NITROGEN 21.3 mg/dL (7-18); CALCIUM 8.6 mg/dL (8.5-10.1)
[2024-02-20 09:20] LABS: BILIRUBIN,DIRECT 0.6 mg/dL (0.0-0.2); CREATININE 1.3 mg/dL (0.55-1.3)
[2024-02-20 09:21] LABS: BILIRUBIN,TOTAL 1.5 mg/dL (0.2-1); TOT PROT 6.1 g/dl (6.4-8.2)
[2024-02-21 08:47] LABS: BASO % 0.6 % (0-2.0); EOS % 3.9 % (0-4.5); HEMOGLOBIN 10.5 GM/dL (10.7-15.3); LYMPH % 5.1 % (8-40); MCH 26.3 pg (25.7-33.7); MCHC 31.8 g/dl (32.0-36.0); MEAN CELL VOLUME 82.8 fl (80-96); MEAN PLT VOLUME 9.9 fl (7.5-11.1); MONO % 14.8 % (3.8-10.2); NEUT % 75.6 % (42.8-82.8); PLATELET COUNT 214 10^3/uL (134-434); RBC 3.99 M/mm3 (3.60-5.2); RDW 16.6 % (11.6-15.6); WHITE BLOOD COUNT 19.6 K/mm3 (4.0-10.0)
[2024-02-21 09:13] LABS: POTASSIUM 3.7 mmol/L (3.5-5.1)
[2024-02-21 09:20] LABS: BLOOD UREA NITROGEN 20.2 mg/dL (7-18)
[2024-02-21 09:22] LABS: CALCIUM 9.4 mg/dL (8.5-10.1)
[2024-02-21 09:23] LABS: ALBUMIN 2.5 g/dl (3.4-5.0)
[2024-02-21 09:26] LABS: CREATININE 1.3 mg/dL (0.55-1.3)
[2024-02-21 09:27] LABS: BILIRUBIN,TOTAL 1.6 mg/dL (0.2-1); TOT PROT 6.2 g/dl (6.4-8.2)
[2024-02-22 09:06] LABS: HEMATOCRIT 33.8 % (32.4-45.2); HEMOGLOBIN 10.6 GM/dL (10.7-15.3); MCH 26.1 pg (25.7-33.7); MCHC 31.2 g/dl (32.0-36.0); MEAN CELL VOLUME 83.7 fl (80-96); MEAN PLT VOLUME 10.1 fl (7.5-11.1); PLATELET COUNT 220 10^3/uL (134-434); RBC 4.04 M/mm3 (3.60-5.2); RDW 16.6 % (11.6-15.6); WHITE BLOOD COUNT 20.3 K/mm3 (4.0-10.0)
[2024-02-22 09:12] LABS: POTASSIUM 3.5 mmol/L (3.5-5.1)
[2024-02-22 09:14] LABS: CALCIUM 9.2 mg/dL (8.5-10.1)
[2024-02-22 09:15] LABS: ALBUMIN 2.3 g/dl (3.4-5.0)
[2024-02-22 09:16] LABS: BLOOD UREA NITROGEN 22.7 mg/dL (7-18)
[2024-02-22 09:18] LABS: CREATININE 1.5 mg/dL (0.55-1.3)
[2024-02-22 09:19] LABS: BILIRUBIN,TOTAL 1.2 mg/dL (0.2-1)
[2024-02-22 09:32] LABS: ANISOCYTOSIS 0; MACROCYTOSIS 0
[2024-02-23 08:02] LABS: HEMATOCRIT 37.3 % (32.4-45.2); HEMOGLOBIN 11.7 GM/dL (10.7-15.3); MCH 26.3 pg (25.7-33.7); MCHC 31.5 g/dl (32.0-36.0); MEAN CELL VOLUME 83.6 fl (80-96); MEAN PLT VOLUME 9.6 fl (7.5-11.1); PLATELET COUNT 222 10^3/uL (134-434); RBC 4.46 M/mm3 (3.60-5.2); RDW 16.9 % (11.6-15.6); WHITE BLOOD COUNT 23.9 K/mm3 (4.0-10.0)
[2024-02-23 08:17] LABS: POTASSIUM 3.3 mmol/L (3.5-5.1)
[2024-02-23 08:46] LABS: ALBUMIN 2.8 g/dl (3.4-5.0); BLOOD UREA NITROGEN 22.1 mg/dL (7-18)
[2024-02-23 08:49] LABS: CREATININE 1.6 mg/dL (0.55-1.3)
[2024-02-23 08:50] LABS: BILIRUBIN,TOTAL 1.5 mg/dL (0.2-1); TOT PROT 7.1 g/dl (6.4-8.2)
[2024-02-23 10:09] LABS: ANISOCYTOSIS 0; HELMET CELLS 0; HOWELL-JOLLY BODIES 0; MACROCYTOSIS 0; OVALOCYTE 0; ROULEAU 0; SICKELED CELLS 0; TARGET CELLS 0; TEAR DROP CELLS 0; TOXIC GRANULATION 0
[2024-02-23] MEDS: POTASSIUM CHLORIDE ORAL LIQUID 20 MEQ/15 ML PO ONE (14:41)
[2024-02-24] MEDS: ALBUTEROL SO4 2.5/IPRATROPIUM 0.5 INH SOL 3 ML VIAL.NEB. NEB PRN ×2 (07:20→15:25)
[2024-02-24] MEDS ORDERED: ALBUTEROL SO4 2.5/IPRATROPIUM 0.5 INH SOL 3 ML VIAL.NEB. NEB ONE (07:30)
[2024-02-24 08:27] LABS: HEMATOCRIT 31.3 % (32.4-45.2); HEMOGLOBIN 10.3 GM/dL (10.7-15.3); MCHC 32.9 g/dl (32.0-36.0); MEAN CELL VOLUME 82.1 fl (80-96); MEAN PLT VOLUME 9.7 fl (7.5-11.1); PLATELET COUNT 205 10^3/uL (134-434); RBC 3.82 M/mm3 (3.60-5.2); RDW 17.4 % (11.6-15.6); WHITE BLOOD COUNT 23.5 K/mm3 (4.0-10.0)
[2024-02-24 08:35] LABS: POTASSIUM 3.5 mmol/L (3.5-5.1)
[2024-02-24 08:41] LABS: ALBUMIN 2.4 g/dl (3.4-5.0); BLOOD UREA NITROGEN 19.4 mg/dL (7-18); CALCIUM 9.2 mg/dL (8.5-10.1)
[2024-02-24 08:44] LABS: CREATININE 1.4 mg/dL (0.55-1.3)
[2024-02-24 08:46] LABS: BILIRUBIN,TOTAL 1.6 mg/dL (0.2-1); TOT PROT 6.2 g/dl (6.4-8.2)
[2024-02-24 10:02] LABS: ANISOCYTOSIS 0; HELMET CELLS 0; HOWELL-JOLLY BODIES 0; MACROCYTOSIS 0; OVALOCYTE 0; ROULEAU 0; SICKELED CELLS 0; TARGET CELLS 0; TEAR DROP CELLS 0; TOXIC GRANULATION 0
[2024-02-24] MEDS ORDERED: SODIUM CHLORIDE 1,000 ML with POTASSIUM CHLORIDE 10 MEQ IV SCH (10:30)
[2024-02-24] MEDS: SODIUM CHLORIDE 1,000 ML with POTASSIUM CHLORIDE 10 MEQ IV SCH (14:58)
[2024-02-24] MEDS: BISACODYL 5 MG TABLET.DR (FP) PO ONE (15:05)
[2024-02-24] MEDS: PEG 3350/NA SULF BICARB CL/KCL 4000 ML SOLN.RECON PO ONE (17:49)
[2024-02-25 07:02] LABS: HEMATOCRIT 29.8 % (32.4-45.2); HEMOGLOBIN 9.7 GM/dL (10.7-15.3); INR 1.19 (0.83-1.09); MCH 26.9 pg (25.7-33.7); MCHC 32.6 g/dl (32.0-36.0); MEAN CELL VOLUME 82.5 fl (80-96); MEAN PLT VOLUME 9.4 fl (7.5-11.1); PLATELET COUNT 189 10^3/uL (134-434); PROTHROMBIN TIME (PATIENT) 13.6 SEC (9.7-13.0); RBC 3.61 M/mm3 (3.60-5.2); RDW 17.5 % (11.6-15.6); WHITE BLOOD COUNT 22.8 K/mm3 (4.0-10.0)
[2024-02-25 07:17] LABS: POTASSIUM 3.5 mmol/L (3.5-5.1)
[2024-02-25 07:21] LABS: CALCIUM 9.2 mg/dL (8.5-10.1)
[2024-02-25 07:22] LABS: ALBUMIN 2.3 g/dl (3.4-5.0); BLOOD UREA NITROGEN 20.4 mg/dL (7-18)
[2024-02-25 07:25] LABS: CREATININE 1.4 mg/dL (0.55-1.3)
[2024-02-25 07:26] LABS: BILIRUBIN,TOTAL 1.4 mg/dL (0.2-1)
[2024-02-25 07:27] LABS: TOT PROT 5.9 g/dl (6.4-8.2)
[2024-02-25 09:01] LABS: ANISOCYTOSIS 0; MACROCYTOSIS 0
[2024-02-26 07:28] LABS: HEMATOCRIT 32.7 % (32.4-45.2); HEMOGLOBIN 10.3 GM/dL (10.7-15.3); MCH 26.4 pg (25.7-33.7); MCHC 31.5 g/dl (32.0-36.0); MEAN CELL VOLUME 83.8 fl (80-96); MEAN PLT VOLUME 9.7 fl (7.5-11.1); PLATELET COUNT 194 10^3/uL (134-434); RBC 3.91 M/mm3 (3.60-5.2); RDW 17.6 % (11.6-15.6); WHITE BLOOD COUNT 24.4 K/mm3 (4.0-10.0)
[2024-02-26 08:04] LABS: POTASSIUM 3.7 mmol/L (3.5-5.1)
[2024-02-26 08:54] LABS: ALBUMIN 2.4 g/dl (3.4-5.0); CALCIUM 9.7 mg/dL (8.5-10.1)
[2024-02-26 08:57] LABS: CREATININE 1.2 mg/dL (0.55-1.3)
[2024-02-26 08:59] LABS: BILIRUBIN,TOTAL 1.3 mg/dL (0.2-1); TOT PROT 6.4 g/dl (6.4-8.2)
[2024-02-26 09:32] LABS: ANISOCYTOSIS 3+; MACROCYTOSIS 0
[2024-02-26] MEDS: AMOX TR/POT CLAV 500MG/125MG TABLETS (FP) PO SCH (17:58)
[2024-02-26] MEDS: ALBUTEROL SO4 2.5/IPRATROPIUM 0.5 INH SOL 3 ML VIAL.NEB. NEB ONE (20:18)
[2024-02-26] MEDS: FUROSEMIDE 40 MG/4 ML INJECTABLE VIAL IVPUSH ONE (20:55)
[2024-02-27 07:28] LABS: HEMATOCRIT 30.6 % (32.4-45.2); HEMOGLOBIN 9.7 GM/dL (10.7-15.3); MCH 26.4 pg (25.7-33.7); MCHC 31.5 g/dl (32.0-36.0); MEAN CELL VOLUME 83.7 fl (80-96); MEAN PLT VOLUME 9.5 fl (7.5-11.1); PLATELET COUNT 197 10^3/uL (134-434); RBC 3.66 M/mm3 (3.60-5.2); RDW 17.5 % (11.6-15.6); WHITE BLOOD COUNT 26.2 K/mm3 (4.0-10.0)
[2024-02-27 07:42] LABS: POTASSIUM 3.9 mmol/L (3.5-5.1)
[2024-02-27 07:49] LABS: ALBUMIN 2.6 g/dl (3.4-5.0); BLOOD UREA NITROGEN 16.2 mg/dL (7-18); CALCIUM 9.3 mg/dL (8.5-10.1)
[2024-02-27 07:53] LABS: CREATININE 1.3 mg/dL (0.55-1.3)
[2024-02-27 07:54] LABS: BILIRUBIN,TOTAL 1.6 mg/dL (0.2-1); TOT PROT 6.6 g/dl (6.4-8.2)
[2024-02-27 09:08] LABS: ANISOCYTOSIS 3+; MACROCYTOSIS 0; OVALOCYTE 0
[2024-02-27] MEDS: FUROSEMIDE 40 MG/4 ML INJECTABLE VIAL IVPUSH SCH (10:02)
[2024-02-27] MEDS: FUROSEMIDE 40 MG/4 ML INJECTABLE VIAL IVPUSH ONE (16:27)
[2024-02-27] MEDS: ALBUTEROL SO4 2.5/IPRATROPIUM 0.5 INH SOL 3 ML VIAL.NEB. NEB PRN (20:56)
[2024-02-28] MEDS: MELATONIN 5 MG TABLETS PO ONE (02:33)
[2024-02-28] MEDS ORDERED: FUROSEMIDE 40 MG/4 ML INJECTABLE VIAL IVPUSH ONE (10:00)
[2024-02-28 12:40] LABS: HEMATOCRIT 32.4 % (32.4-45.2); HEMOGLOBIN 10.4 GM/dL (10.7-15.3); MCH 26.8 pg (25.7-33.7); MCHC 32.2 g/dl (32.0-36.0); MEAN CELL VOLUME 83.2 fl (80-96); MEAN PLT VOLUME 9.9 fl (7.5-11.1); PLATELET COUNT 185 10^3/uL (134-434); RDW 17.9 % (11.6-15.6); WHITE BLOOD COUNT 24.6 K/mm3 (4.0-10.0)
[2024-02-28 12:59] LABS: POTASSIUM 3.9 mmol/L (3.5-5.1)
[2024-02-28 13:01] LABS: CALCIUM 9.8 mg/dL (8.5-10.1)
[2024-02-28 13:02] LABS: ALBUMIN 2.8 g/dl (3.4-5.0); BLOOD UREA NITROGEN 20.7 mg/dL (7-18)
[2024-02-28 13:05] LABS: CREATININE 1.5 mg/dL (0.55-1.3)
[2024-02-28 13:07] LABS: BILIRUBIN,TOTAL 1.8 mg/dL (0.2-1)
[2024-02-28 13:38] LABS: ANISOCYTOSIS 3+; MACROCYTOSIS 0
[2024-02-28] MEDS: ENOXAPARIN NA (PORCINE) 40 MG/0.4 ML DISP.SYRIN SQ SCH (17:49)
[2024-02-29] MEDS: FUROSEMIDE 40 MG/4 ML INJECTABLE VIAL IVPUSH ONE (00:45)
[2024-02-29 09:28] LABS: HEMATOCRIT 29.9 % (32.4-45.2); HEMOGLOBIN 9.3 GM/dL (10.7-15.3); MCH 26.4 pg (25.7-33.7); MEAN CELL VOLUME 85.1 fl (80-96); MEAN PLT VOLUME 11.1 fl (7.5-11.1); PLATELET COUNT 105 10^3/uL (134-434); RBC 3.52 M/mm3 (3.60-5.2); RDW 18.5 % (11.6-15.6); WHITE BLOOD COUNT 21.7 K/mm3 (4.0-10.0)
[2024-02-29] MEDS: MAGNESIUM HYDROX 2400MG/30ML ORAL SUSPENSION 30 ML CUP PO PRN (09:38)
[2024-02-29 10:21] LABS: CALCIUM 9.3 mg/dL (8.5-10.1)
[2024-02-29 10:22] LABS: ALBUMIN 2.5 g/dl (3.4-5.0); BLOOD UREA NITROGEN 23.9 mg/dL (7-18)
[2024-02-29 10:25] LABS: CREATININE 1.7 mg/dL (0.55-1.3)
[2024-02-29 10:26] LABS: BILIRUBIN,TOTAL 1.4 mg/dL (0.2-1); TOT PROT 6.4 g/dl (6.4-8.2)
[2024-03-01 10:22] VITALS: RESP 18
[2024-03-01 11:20] LABS: HEMATOCRIT 33.7 % (32.4-45.2); HEMOGLOBIN 10.7 GM/dL (10.7-15.3); MCH 26.6 pg (25.7-33.7); MCHC 31.7 g/dl (32.0-36.0); MEAN CELL VOLUME 84.1 fl (80-96); MEAN PLT VOLUME 10.7 fl (7.5-11.1); PLATELET COUNT 215 10^3/uL (134-434); RDW 18.9 % (11.6-15.6); WHITE BLOOD COUNT 23.1 K/mm3 (4.0-10.0)
[2024-03-01 11:37] LABS: POTASSIUM 3.7 mmol/L (3.5-5.1)
[2024-03-01 11:43] LABS: CALCIUM 9.6 mg/dL (8.5-10.1)
[2024-03-01 11:44] LABS: ALBUMIN 2.8 g/dl (3.4-5.0); BLOOD UREA NITROGEN 29.5 mg/dL (7-18)
[2024-03-01 11:47] LABS: CREATININE 1.8 mg/dL (0.55-1.3)
[2024-03-01 11:48] LABS: BILIRUBIN,TOTAL 1.7 mg/dL (0.2-1)
[2024-03-01 11:49] LABS: TOT PROT 7.3 g/dl (6.4-8.2)
[2024-03-01 18:17] VITALS: BP 98/80; PULSE 88; TEMP 98.8
== END 2024-03-01 19:42 | DRG 417 ==
LOC: JER 16:57 → JERBED 23:36 → J7W 02-11 16:30 → J4W 02-16 10:26
PROVIDERS: ADMIT Internal Medicine; ATTEND Internal Medicine
PROC: 8E0W4CZ Robotic Assisted Procedure of Trunk Region, Percutaneous Endoscopic Approach (ICD-10-PCS; 2024-02-13)
PROC: 0FT44ZZ Resection of Gallbladder, Percutaneous Endoscopic Approach (ICD-10-PCS; principal; 2024-02-13 12:00)
PROC: 30233N1 Transfusion of Nonautologous Red Blood Cells into Peripheral Vein, Percutaneous Approach (ICD-10-PCS; 2024-02-15)
DX: K81.0 Acute cholecystitis (principal); A41.89 Other specified sepsis; D62 Acute posthemorrhagic anemia; F33.9 Major depressive disorder, recurrent, unspecified; N17.9 Acute kidney failure, unspecified; N39.0 Urinary tract infection, site not specified; J90 Pleural effusion, not elsewhere classified; R00.0 Tachycardia, unspecified; I10 Essential (primary) hypertension; F03.90 Unspecified dementia, unspecified severity, without behavioral disturbance, psychotic disturbance, mood disturbance, and anxiety; K21.9 Gastro-esophageal reflux disease without esophagitis; E78.5 Hyperlipidemia, unspecified; D86.0 Sarcoidosis of lung; R62.7 Adult failure to thrive; Z68.24 Body mass index [BMI] 24.0-24.9, adult; E86.0 Dehydration; B19.20 Unspecified viral hepatitis C without hepatic coma; D72.829 Elevated white blood cell count, unspecified; K74.60 Unspecified cirrhosis of liver; D49.0 Neoplasm of unspecified behavior of digestive system; I27.20 Pulmonary hypertension, unspecified; M89.9 Disorder of bone, unspecified
CPT/HCPCS: 36415; 36430; 71045-TC-FY; 71250-TC; 74160-TC; 74176-TC; 74177-TC; 74181-TC; 76705-TC; 78226-TC; 78306-TC; 80048; 80053; 80061; 80076; 81003; 82105; 82550; 82553; 82977; 83036; 83605; 83690; 83735; 83880; 84100; 84132; 84443; 85025; 85027; 85610; 85730; 86704; 86708; 86803; 86850; 86900; 86901; 86922; 87040; 87081; 87086; 87324; 87340; 87389; 87449; 87517; 87522; 88304-TC; 93005; 93010; 94010; 94640; 94760; 97116-GP; 97162-GP; 99285-25; A9503; A9537; J0131; J1644; P9058; Q9967